=== PATIENT | female | born 1950 | race Caucasian/White ===

== ENCOUNTER → 2019-10-25 12:36 | Outpatient (CLI) | payer MEDICARE, SELFPAY ==
--- NOTE | ~2019-10-25 | MM_ITS ---
EXAMINATION: MM screening [facility] BI w robin HISTORY: Screening mammogram TECHNIQUE: Craniocaudal and mediolateral oblique 3-D tomosynthesis images were obtained and synthetic 2-D images were generated. CAD analysis was submitted and interpreted. COMPARISON: No prior mammogram is available for comparison at this institution. BREAST PARENCHYMAL COMPOSITION: The breasts are almost entirely fatty. FINDINGS: There is an unchanged asymmetry in the middle third of the right breast on the craniocaudal view and stable focal asymmetry in the upper outer quadrant of the left breast. There is no evidence of suspicious mass, calcification, or architectural distortion to suggest malignancy in either breas t. There has been no suspicious interval change. IMPRESSION: 1. No mammographic evidence of malignancy. 2. Recommend routine screening mammography in one year. BI-RADS Category 2: Benign finding(s). Reviewed, dictated and finalized at location A. [employer]
== END ==
PROVIDERS: Visit Provider Nurse Practitioner
DX: Z12.31 Encounter for screening mammogram for malignant neoplasm of breast (principal)
CPT/HCPCS: 77063; 77067

== ENCOUNTER 2019-12-25 08:43 | Emergency (ER) | payer MEDICARE, SELFPAY ==
[2019-12-25 08:55] VITALS: BP 150/92; PULSE 71; RESP 18; TEMP 36.2; O2SAT 98
--- NOTE | 2019-12-25 09:01 | ED.EYEPROB ---
HPI - Eye Problem General Chief complaint: Eye Problems Stated complaint: eye problems History of Present Illness HPI Narrative: This is a 69 year old that comes in complaining of right eye pain that started to hurt 2 days ago and she woke up this morning with drainage. Patient states that her ear was hurting as well. Patient denies any fever, nausea, vomiting or diarrhea . Related Data Home Medications Medication Instructions Recorded Confirmed metoprolol succinate 100 mg 100 mg PO DAILY 08/03/19 11/24/19 tablet,extended release 24 hr Allergies Allergy/AdvReac Type Severity Reaction Status Date / Time Sulfa (Sulfonamide Allergy Unknown Unknown Verified 12/21/18 10:16 Antibiotics) Review of Systems Review of Systems: Narrative: CONSTITUTIONAL: Denies fever, chills, or sweats. EYES: Denies visual changes, reports redness, or discharge. ENT: Denies rhinorrhea, congestion, sore throat, or otalgia. CARDIOVASCULAR:Denies chest pain, palpitations, or edema. RESPIRATORY: Denies cough or dyspnea. GASTROINTESTINAL: Denies abdominal pain, nausea, vomiting, or diarrhea. GENITOURINARY: Denies dysuria or hematuria. SKIN:[Denies rash or itching. MUSCULOSKELETAL:Denies back pain, joint pain, or myalgia. NEUROLOGIC: Denies headache, numbness, or weakness. PSYCHIATRIC:Denies anxiety or depression PMFSH Social History Social History Smoking status: Never smoker Alcohol intake: current Comments At time as signature, I have reviewed and agree with nursing past medical, social, surgical and family history. Please see nursing chart for further information. There is no relevant family history pertinent to the presenting complaint. Exam Narrative: Exam Narrative: GENERAL:Well-appearing, well-nourished, and in no acute distress. HEAD:Normocephalic, atraumatic. EYES: PERRLA and EOMI.pain and red eye with drainage ENT: Nares clear, no rhinorrhea or epistaxis. Mucous membranes moist. right eye drainage and pain right ear has slight auditory edema with drainage. NECK: Supple. CHEST: Clear to auscultation. No respiratory distress. HEART: Regular rate and rhythm. No murmur heard. Normal peripheral pulses. ABDOMEN: Soft, nontender, nondistended, normal active bowel sounds. EXTREMITIES: Normal range of motion. No edema. SKIN: Warm, dry, no rash. NEURO: No focal deficits. Alert and oriented x3. Course Vital Signs Vital signs: Vital Signs Temperature 97.2 F L 12/25/19 08:55 Pulse Rate 71 12/25/19 08:55 Respiratory Rate 18 12/25/19 08:55 Blood Pressure 150/92 H 12/25/19 08:55 Pulse Oximetry 98 12/25/19 08:55 Temperature 97.2 F L 12/25/19 08:55 Pulse Rate 71 12/25/19 08:55 Respiratory Rate 18 12/25/19 08:55 Blood Pressure 150/92 H 12/25/19 08:55 Pulse Oximetry 98 12/25/19 08:55 Discharge Plan Discharge Clinical Impression: Bacterial conjunctivitis, Conjunctivitis, Otitis externa Patient Disposition: Home, Self-Care Condition: Stable Instructions: Antibiotic Form, Corneal Abrasion (ED), Warm Compress or Soak (ED) Additional Instructions: Your blood pressure was elevated in the clinic today, I feel that this is due to your acute illness rather than essential hypertension. please follow-up with your regular doctor for further evaluation and monitor for evaluation of hypertension Please [facility] schedule a followup visit with your personal physician with in the next 1-4 weeks for further evaluation and treatment. Also, ask your personal physician to assist you regarding blood pressure. Even blood pressure exceeding 120/80 may indicate pre-hypertension. If your symptoms persist, change or worsen significantly before you can contact your personal physician then please, without delay, go to the emergency department for further evaluation. Prescriptions: New ofloxacin 0.3 % drops See Rx Instructions .ROUTE .COMPLEX Qty: 10 RF: 0 Ciprodex 0.3-0.1 % drops,suspension
== END 2019-12-25 09:13 | disposition home or self-care (01) ==
PROVIDERS: Emergency Provider Nurse Practitioner Family; PCP Family Medicine
DX: H10.89 Other conjunctivitis (principal); H60.91 Unspecified otitis externa, right ear
CPT/HCPCS: 99213; G0463

== ENCOUNTER → 2021-03-27 11:00 | Outpatient (CLI) | payer MEDICARE, SELFPAY ==
--- NOTE | ~2021-03-27 | MM_ITS ---
EXAMINATION: MM screening [facility] BI w robin HISTORY: Screening TECHNIQUE: Craniocaudal and mediolateral oblique 3-D tomosynthesis images were obtained and synthetic 2-D images were generated. CAD analysis was submitted and interpreted. COMPARISON: Comparison to multiple prior studies sequentially, with oldest reviewed study dated 11/2014. BREAST PARENCHYMAL COMPOSITION: There are scattered areas of fibroglandular density. FINDINGS: There is no evidence of suspicious mass, calcification, or architectural distortion to sugg est malignancy in either breast. There has been no suspicious interval change. IMPRESSION: 1. No mammographic evidence of malignancy. 2. Recommend routine screening mammography in one year. BI-RADS Category 1: Negative Reviewed, dictated and finalized at location A.
== END ==
PROVIDERS: PCP Family Medicine; Visit Provider Nurse Practitioner
DX: Z12.31 Encounter for screening mammogram for malignant neoplasm of breast (principal)
CPT/HCPCS: 77063; 77067

== ENCOUNTER 2021-07-05 18:58 | Emergency (ER) | payer MEDICARE, SELFPAY ==
--- NOTE | ~2021-07-05 | XR_ITS ---
XR forearm LT 2V 07/05/2021 19:13 INDICATION: Left arm pain after fall PROCEDURE: 2 views left forearm COMPARISON: No prior studies for comparison. FINDINGS: Fracture, dislocation or subluxation is not identified. There is triscaphe and first [facility] os teoarthritis. The soft tissues appear within normal limits. No foreign bodies are identified. IMPRESSION: 1: NO ACUTE BONE OR JOINT ABNORMALITY IDENTIFIED. Reviewed, dictated and finalized at location A.
--- NOTE | 2021-07-05 19:05 | ED.UPPEXIN ---
HPI - Extremity Injury (Upper) General Chief Complaint: Fall Stated Complaint: left forarm pain Time Seen by Provider: 07/05/21 19:00 Source: patient and RN notes reviewed Mode of arrival: ambulatory Limitations: no limitations History of Present Illness HPI narrative: 70-year-old female presents to the [facility] with complaints of left forearm pain. Patient reports that she was walking into the garage carrying groceries when she tripped and fell into her 's golf cart. Unknown last tetanus. Small cut noted to the forearm. Clean, swollen. Tender to touch along the ulna. Full range of motion of the wrist, elbow, shoulder. Strong fisher mussel. Positive radial pulse. Capillary refill under 2 seconds and sensation intact distal to injury Related Data Allergies Allergy/AdvReac Type Severity Reaction Status Date / Time Sulfa (Sulfonamide Allergy Unknown Unknown Verified 07/05/21 19:58 Antibiotics) Review of Systems Review of Systems: All systems reviewed & are unremarkable except as noted in HPI and below Constitutional: Constitutional: Reports no additional constitutional complaints, Denies chills and Denies fever(s) Eyes: Eyes: Reports no additional eye complaints ENT: Reports system reviewed and no additional complaints, except as documented Cardiovascular: Cardiovascular: Reports no additional cardiovascular complaints Respiratory: Respiratory: Reports no additional respiratory complaints Gastrointestinal: Gastrointestinal: Reports no additional gastrointestinal complaints Musculoskeletal: Musculoskeletal: Reports as per HPI Comments: Left mid forearm pain Integumentary/Breasts: Skin/Breast: Reports as per HPI Neurologic: Reports system reviewed and no additional complaints, except as documented Psychiatric: Psychiatric: Reports no additional psychiatric complaints Allergic/Immunologic: Allergic/Immunologic: Reports no additional allergic/immunologic complaints [facility] Past Medical History Medical History Basal cell carcinoma of scalp (~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 There is no relevant family history pertinent to the patient complaint. Exam Const: General: healthy appearing, no acute distress and alert Nutritional Appearance: well nourished Orientation/consciousness: patient oriented x3 Limitations: no limitations HENMT: Head: normal to inspection Ears: external ears normal Eyes: Pupils: Equal, round and reactive pupils present Neck: Neck: normal visual inspection, no lymphadenopathy and no meningeal signs Chest: Chest palpation & inspection: normal inspection of the chest Resp: Effort & Inspection: normal respiratory effort Auscultation: clear to auscultation bilaterally Cardio: Rate: regular rate Rhythm: regular rhythm : General: Yes no CVA tenderness Back/Spine/Pelvis: Back: no CVA tenderness Skin: General skin exam: normal color Rashes: no rashes Wounds: wounds noted laceration left mid forearm size (1cm) and without odor; no drainage and without any surrounding erythema Neuro: General: patient oriented x3, moves all extremities, no meningeal signs and no focal motor deficits Speech: normal speech Gait exam (Neuro): Normal gait present Extrem: General: normal to inspection, full ROM and capillary refill normal Left upper
[2021-07-05 19:07] VITALS: BP 157/72; PULSE 70; RESP 18; TEMP 36.1; O2SAT 100
[2021-07-05] MEDS: TETANUS,DIPHTHERIA,AC PERTUSSIS ADULT (0.5 ML) BOOSTRIX IM (19:15)
== END 2021-07-05 19:24 | disposition home or self-care (01) ==
PROVIDERS: Emergency Provider Nurse Practitioner; PCP Family Medicine
DX: S50.12XA Contusion of left forearm, initial encounter (principal); S50.812A Abrasion of left forearm, initial encounter; W22.8XXA Striking against or struck by other objects, initial encounter; Z23 Encounter for immunization; M17.11 Unilateral primary osteoarthritis, right knee; Z85.828 Personal history of other malignant neoplasm of skin; Z96.651 Presence of right artificial knee joint
CPT/HCPCS: 73090; 90471; 90715; 99213; G0463

== ENCOUNTER → 2022-04-22 10:06 | Outpatient (CLI) | payer MEDICARE, SELFPAY ==
--- NOTE | ~2022-04-22 | DEXA_ITS ---
Bone Density Report Name: SPENCER ABRAMS Age: 71 Sex: Female Ethnicity: White Date of : 1950 Indication: postmenopausal; screening for osteoporosis; height loss; Referring Provider: MADIE, LG Study: Bone densitometry was performed. Exam Date: April 22, 2022 Accession number: [id number] Bone Density: Region BMD T-score Z-score Classification AP Spine (L1-L4) 1.422 3.4 5.5 Normal Femoral Neck (Left) 0.949 0.9 2.7 Normal Total Hip (Left) 1.072 1.1 2.5 Normal Femoral Neck (Right) 0.963 1.0 2.8 Normal Total Hip (Right) 1.051 0.9 2.4 Normal Total Hip Mean 1.062 1.0 2.5 Normal World Health Organization criteria for BMD impression classify patients as: Normal (T-score at or above -1.0), Osteopenia (T-score between -1.0 and -2.5), or Osteoporosis (T-score at or below -2.5). 10-year Fracture Risk: FRAX not reported because: All T-scores for Spine Total, Hip Total, Femoral Neck at or above -1.0 Previous Exams: Region Exam Age BMD T-score BMD Change BMD Change Date g/cm2 vs Baseline vs Previous AP Spine(L1-L4) 04/22/2022 71 1.422 3.4 0.102* 0.043* 08/29/2017 66 1.379 3.0 0.059* -0.026* 01/17/2009 58 1.405 3.3 0.086* 0.086* 08/02/2004 53 1.319 2.5 Total Hip(Left) 04/22/2022 71 1.072 1.1 -0.127* -0.030* 08/29/2017 66 1.102 1.3 -0.096* -0.091* 01/17/2009 58 1.194 2.1 -0.005 -0.005 08/02/2004 53 1.199 2.1 Total Hip(Right) 04/22/2022 71 1.051 0.9 -0.097* -0.031* 08/29/2017 66 1.082 1.1 -0.066* -0.149* 01/17/2009 58 1.231 2.4 0.083* 0.083* 08/02/2004 53 1.148 1.7 *Denotes significance at 95% confidence level, LSC for AP Spine = 0.022 g/cm2, LSC for Total Hip = 0.027 g/cm2 Clinical Information Provided by Patient: Has used the following medications: Vitamin D, MTV Patient maximum height was 69 Menopause Age: 60 Drinks caffeinated beverages Onset of menses at age 15 Number of children 2 Impression: The patient has normal bone mass. The BMD for the Total Hip(Left) decreased, changing by -0.030 since the last DXA exam. The BMD for the Total Hip(Right) decreased, changing by -0.031 since the last DXA exam. Discussion: LOW RISK OF FRACTURE; BONE DENSITY IS WELL ABOVE THE MINIMUM DESIRABLE LEVEL AND ABOVE AVERAG
--- NOTE | ~2022-04-22 | MM_ITS ---
EXAMINATION: MM screening [facility] w robin HISTORY: Screening mammogram TECHNIQUE: Craniocaudal and mediolateral oblique 3-D tomosynthesis images were obtained and synthetic 2-D images were generated. CAD analysis was submitted and interpreted. COMPARISON: 03/27/2021, , bilateral screening mammogram examinations BREAST PARENCHYMAL COMPOSITION: There are scattered areas of fibroglandular density. FINDINGS: Stable mild fibroglandular asymmetry. Occasional bilateral benign calcifications. There is no evidence of suspicious mass, calcification, or architectural distortion to suggest malignancy in e ither breast. There has been no suspicious interval change. IMPRESSION: 1. No mammographic evidence of malignancy. 2. Recommend routine screening mammography in one year. BI-RADS Category 2: Benign finding(s). Reviewed, dictated and finalized at location A.
== END ==
PROVIDERS: PCP Family Medicine; Visit Provider Nurse Practitioner
DX: Z12.31 Encounter for screening mammogram for malignant neoplasm of breast (principal); Z78.0 Asymptomatic menopausal state
CPT/HCPCS: 77063; 77067; 77080

== ENCOUNTER → 2023-04-27 11:09 | Outpatient (CLI) | payer MEDICARE, SELFPAY ==
--- NOTE | ~2023-04-27 | MM_ITS ---
EXAMINATION: MM screening [facility] w robin HISTORY: Screening mammogram TECHNIQUE: Craniocaudal and mediolateral oblique 3-D tomosynthesis images were obtained and synthetic 2-D images were generated. CAD analysis was submitted and interpreted. COMPARISON: 04/22/2022, 03/27/2021, bilateral screening mammogram examinations BREAST PARENCHYMAL COMPOSITION: There are scattered areas of fibroglandular density. FINDINGS: Stable mild fibroglandular asymmetry. Occasional benign calcifications. There is no evidenc e of suspicious mass, calcification, or architectural distortion to suggest malignancy in either [address]. There has been no suspicious interval change. IMPRESSION: 1. No mammographic evidence of malignancy. 2. Recommend routine screening mammography in one year. BI-RADS Category 2: Benign finding(s). Reviewed, dictated and finalized at location A.
== END ==
PROVIDERS: PCP Family Medicine; Visit Provider Nurse Practitioner
DX: Z12.31 Encounter for screening mammogram for malignant neoplasm of breast (principal)
CPT/HCPCS: 77063; 77067

== ENCOUNTER 2023-07-14 03:23 | Day surgery (SDC) | payer MEDICARE, SELFPAY ==
[2023-07-01 16:13] VITALS: BMI 28.3
--- NOTE | 2023-07-10 11:00 | SUR.PREOP ---
Patient called regarding upcoming procedure. Message left on patient's voicemail regarding preop instructions and appointment times.
[2023-07-14 07:58] VITALS: BP 163/85; PULSE 87; RESP 18; TEMP 36.7; O2SAT 98
[2023-07-14] MEDS: LACTATED RINGERS 1,000 ML 150 ML IV CONT (08:03)
--- NOTE | 2023-07-14 09:03 | PM.HPGS ---
History of Present Illness History of Present Illness Consent: Risks, benefits, and alternatives have been discussed and questions answered. Patient agrees to proceed with procedure. Chief complaint: neoplasm screening Narrative: Amanda Drummond is a 72 year old female Presents for screening colonoscopy. Patient's current weight appetite and bowel movements are normal. Patient denies abdominal pain. She has had no bleeding. Family history noncontributory. Patient's last colonoscopy 10 years ago was unremarkable. Review of Systems Review of Systems: Review of systems noncontributory. [facility] Past Medical History Medical History (Updated 07/14/23 @ 09:04 by Benjamin Belcher MD) Abrasion of forearm, left Acute non-recurrent maxillary sinusitis Basal cell carcinoma of scalp (~08/07/20) left parietal scalp BMI 27.0-27.9,adult BMI 28.0-28.9,adult BMI 29.0-29.9,adult Body mass index (bmi) 30.0-30.9, adult (12/21/18) Breast cancer screening by mammogram normal mammogram 04/27/2023. Chronic anxiety Colon cancer screening (05/19/22) Fecal occult blood immunoassay screening 05/19/2022 was negative. 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 Restrictive cardiomyopathy Cardiology note with hypertrophic cardiomyopathy Seasonal allergic rhinitis Vaccine for [id number]-birrbohev, combined Surgical History Surgical History History of total right knee replacement Social History Social History Smoking status: Never smoker Alcohol intake: current Alcohol use details: 1-2 per year Substance use: never Substance use type: does not use Lack of Transportation: No Lack of Food: Never True Current Housing: I Have Housing Concerned About Future Housing: No Difficulty Paying Gas/Electric Bills: No Difficulty Paying for Meds: No Currently Unemployed: No Education: Master's Degree or Higher Difficulty w/ Childcare or Family Care: No Living arrangements: with family Spiritual care concerns: No Meds Home Medications and Allergies Home Medications Medication Instructions Recorded Confirmed Type metoprolol succinate 100 mg 100 mg PO DAILY #90 tabs 11/20/22 07/01/23 Rx tablet,extended release 24 hr fenofibrate 160 mg tablet 160 mg PO DAILY #90 tabs 05/06/23 07/01/23 Rx Allergies Allergy/AdvReac Type Severity Reaction Status Date / Time Sulfa (Sulfonamide Allergy Unknown Unknown Verified 07/14/23 07:57 Antibiotics) Vital Signs Vital Signs - 24 hr 07/14/23 07:58 Temperature 98.0 F Pulse Rate 87 Respiratory Rate 18 Blood Pressure 163/85 H Pulse Oximetry 98 Oxygen Delivery Room Air Exam Narrative: Physical exam reveals patient to be alert vital signs stable. HEENT exam is unremarkable. Patient is anicteric. Lungs are clear to auscultation and percussion. Heart is without murmur or extra sounds. Abdomen bowel sounds are present soft nontender with no organomegaly. Digital external rectal exam is normal. Assessment and Plan Assessment and plan (1) Encounter for screening colonoscopy: Code(s): Z12.11 - Encounter for screening for malignant neoplasm of colon Status: Acute Assessment and Plan: Patient presents today for screening colonoscopy. She appears to be at average risk for colon polyps. Further recommendations may be given after endoscopy.
--- NOTE | 2023-07-14 09:26 | WPDANESEPPF ---
Anes - Initial Pre Proc Eval Procedure: Operation Date: 07/14/23 09:15 Proposed Procedures p Screening Colonoscopy - Benjamin Belcher MD Date/Time: 07/14/23 09:26 Surgeon: Benjamin Belcher MD Pre Op Diagnosis: neoplasm screening Patient Data Age: 72 Gender: F Height: 1.7 m Weight: 81.1 kg Last Vital Signs Temp 98.0 F 07/14/23 07:58 Pulse 87 07/14/23 07:58 Resp 18 07/14/23 07:58 BP 163/85 H 07/14/23 07:58 Pulse Ox 98 07/14/23 07:58 O2 Del Method Room Air 07/14/23 07:58 Allergies Allergy/AdvReac Type Severity Reaction Status Date / Time Sulfa (Sulfonamide Allergy Unknown Unknown Verified 07/14/23 07:57 Antibiotics) Home Medications Medication Instructions Recorded Confirmed Type metoprolol succinate 100 mg 100 mg PO DAILY #90 tabs 11/20/22 07/01/23 Rx tablet,extended release 24 hr fenofibrate 160 mg tablet 160 mg PO DAILY #90 tabs 05/06/23 07/01/23 Rx Patient hx anesthesia problems: none Family hx anesthesia problems: none Results Review: All pre-operative results and documents have been reviewed as part of the pre-operative evaluation. [facility] Past Medical History Medical History (Updated 07/14/23 @ 09:04 by Benjamin Belcher MD) Abrasion of forearm, left Acute non-recurrent maxillary sinusitis Basal cell carcinoma of scalp (~08/07/20) left parietal scalp BMI 27.0-27.9,adult BMI 28.0-28.9,adult BMI 29.0-29.9,adult Body mass index (bmi) 30.0-30.9, adult (12/21/18) Breast cancer screening by mammogram normal mammogram 04/27/2023. Chronic anxiety Colon cancer screening (05/19/22) Fecal occult blood immunoassay screening 05/19/2022 was negative. Contusion of forearm, left Hypercalcemia Hypertrophic cardiomyopathy followed by curriculum supervisor annually Insomnia Neoplasm of skin Neuralgia (~2021) intermittent right maxillary neuralgia Osteoarthritis of right knee Overweight (BMI 25.0-29.9) Protein in urine urinalysis was completely normal on 11/10/2022. Restrictive cardiomyopathy Cardiology note with hypertrophic cardiomyopathy Seasonal allergic rhinitis Vaccine for [id number]-meykqmcwp, combined Surgical History Surgical History History of total right knee replacement Social History Social History Smoking status: Never smoker Alcohol intake: current Alcohol use details: 1-2 per year Substance use: never Substance use type: does not use Lack of Transportation: No Lack of Food: Never True Current Housing: I Have Housing Concerned About Future Housing: No Difficulty Paying Gas/Electric Bills: No Difficulty Paying for Meds: No Currently Unemployed: No Education: Master's Degree or Higher Difficulty w/ Childcare or Family Care: No Living arrangements: with family Spiritual care concerns: No Anes - Eval Final PreProcedure Day of Procedure 07/14/23 09:26 Patient weight: normal Heart: regular rate and rhythm Lungs: clear to auscultation Airway: Mallampati scale class II Neurological: alert and oriented Last oral intake: >/= 8 hours ASA classification: III Emergent: no Anesthetic plan: proceed Anesthesia type and monitoring: general GIVS and standard monitoring Results Review: All pre-operative results and documents have been reviewed as part of the pre-operative evaluation. Informed Consent: The patient's anesthetic plan and its attendant risks and benefits were discussed with the patient/family/POA. Questions were solicited and answers provided to the satisfaction of the patient/family/POA.
[2023-07-14] MEDS: SIMETHICONE ORAL SUSPENSION 20 MG/0.3 ML 30 ML BOTTLE 0.6 ML IRRIGATION (10:06)
[2023-07-14 10:14] VITALS: BP 136/60; PULSE 69; RESP 22; O2SAT 99
[2023-07-14 10:24] VITALS: BP 112/70; PULSE 60; RESP 22; O2SAT 98
[2023-07-14 10:34] VITALS: BP 146/80; PULSE 68; RESP 20; O2SAT 99
== END 2023-07-14 10:45 | disposition home or self-care (01) ==
PROVIDERS: PCP Family Medicine; Visit Provider Internal Medicine Gastroenterology
PROC: 0DJD8ZZ Inspection of Lower Intestinal Tract, Via Natural or Artificial Opening Endoscopic (ICD-10-PCS; CPT 45378; principal; 2023-07-14 09:15)
DX: Z12.11 Encounter for screening for malignant neoplasm of colon (principal); D12.2 Benign neoplasm of ascending colon; D12.3 Benign neoplasm of transverse colon; D12.5 Benign neoplasm of sigmoid colon; K63.5 Polyp of colon; K64.8 Other hemorrhoids; I42.2 Other hypertrophic cardiomyopathy
CPT/HCPCS: 45385; 88305; J2704; J7120

== ENCOUNTER 2024-04-28 09:54 | Outpatient (CLI) | payer MEDICARE, SELFPAY ==
--- NOTE | ~2024-04-28 | MM_ITS ---
EXAMINATION: MM screening [facility] BI w robin HISTORY: Screening TECHNIQUE: Craniocaudal and mediolateral oblique 3-D tomosynthesis images were obtained and synthetic 2-D images were generated. CAD analysis was submitted and interpreted. COMPARISON: Comparison to multiple prior studies sequentially, with oldest reviewed study dated 08/08. BREAST PARENCHYMAL COMPOSITION: Not dense: There are scattered areas of fibroglandular density. FINDINGS: There is no evidence of suspicious mass, calcification, or architectural distortion to sugg est malignancy in either breast. There has been no suspicious interval change. IMPRESSION: 1. No mammographic evidence of malignancy. 2. Recommend routine screening mammography in one year. BI-RADS Category 1: Negative Reviewed, dictated and finalized at location B.
== END 2024-04-28 09:55 ==
LOC: MICIMG 09:55
PROVIDERS: PCP Family Medicine; Visit Provider Nurse Practitioner
DX: Z12.31 Encounter for screening mammogram for malignant neoplasm of breast (principal)
CPT/HCPCS: 77063; 77067

== ENCOUNTER 2024-11-07 12:35 | Emergency (ER) | payer MEDICARE, SELFPAY ==
[2024-11-07 12:56] VITALS: BP 124/85; PULSE 65; RESP 16; TEMP 36.2; O2SAT 99
--- NOTE | 2024-11-07 12:57 | ED.GENADULT ---
HPI - General Adult General Chief complaint: Eye Problems Stated complaint: right eye issue Time Seen by Provider: 11/07/24 12:57 Source: patient, RN notes reviewed and old records reviewed Mode of arrival: ambulatory Limitations: no limitations History of Present Illness HPI narrative: 74-year-old female presents to the [facility] with concerns for stye to the right upper eyelid. Started 2 days ago. Has cool compresses. No blurry vision or change in vision. No trauma to the eye. No surrounding orbital erythema. Onset (ago): day(s) (2) Related Data Allergies Allergy/AdvReac Type Severity Reaction Status Date / Time Sulfa (Sulfonamide Allergy Unknown Unknown Verified 11/07/24 12:49 Antibiotics) Review of Systems Review of Systems: All systems reviewed & are unremarkable except as noted in HPI and below Constitutional: Constitutional: Reports no additional constitutional complaints Eyes: Eyes: Reports as per HPI ENT: Reports system reviewed and no additional complaints, except as documented Cardiovascular: Cardiovascular: Reports no additional cardiovascular complaints, Denies chest pain and Denies dyspnea Respiratory: Respiratory: Reports no additional respiratory complaints, Denies chest congestion, Denies cough and Denies dyspnea Musculoskeletal: Musculoskeletal: Reports no additional musculoskeletal complaints Integumentary/Breasts: Skin/Breast: Reports system reviewed and no additional complaints, except as docu [facility] Past Medical History Medical History Tick bite of ankle (~11/28/23) At low risk for fall Adenomatous colon polyp (07/14/23) multiple adenomatous polyps on colonoscopy 07/14/2023 sigmoid, ascending, and transverse colon with recheck in 5 years. BMI 27.0-27.9,adult Breast cancer screening by mammogram normal mammogram 04/27/2023. normal on 04/28/2024. Hypertrophic cardiomyopathy followed by online journalist annually Colon cancer screening (05/19/22) Fecal occult blood immunoassay screening 05/19/2022 was negative. Overweight (BMI 25.0-29.9) Neuralgia (~2021) intermittent right maxillary neuralgia BMI 29.0-29.9,adult Acute non-recurrent maxillary sinusitis Vaccine for [id number], combined Abrasion of forearm, left Contusion of forearm, left Protein in urine urinalysis was completely normal on 11/10/2022. Normal urinalysis 11/13/2023. BMI 28.0-28.9,adult Basal cell carcinoma of scalp (~08/07/20) left parietal scalp Neoplasm of skin Osteoarthritis of right knee Seasonal allergic rhinitis Chronic anxiety Body mass index (bmi) 30.0-30.9, adult (12/21/18) Hypercalcemia Insomnia Restrictive cardiomyopathy Cardiology note with hypertrophic cardiomyopathy Surgical History Surgical History History of total right knee replacement Social History Social History Smoking status: Never smoker Alcohol intake: former Substance use: never Substance use type: does not use Lack of Transportation: No Lack of Food: Never True Current Housing: I Have Housing Concerned About Future Housing: No Difficulty Paying Gas/Electric Bills: No Difficulty Paying for Meds: No Currently Unemployed: No Education: Master's Degree or Higher Difficulty w/ Childcare or Family Care: No Living arrangements: with family Spiritual care concerns: No Comments At the time of my signature, I reviewed and agree with the nursing past medical, surgical, social, and family history. There is no relevant family history pertinent to the patient complaint. Exam Const: General: cooperative, healthy appearing, comfortable, no acute distress, well developed, alert and well nourished Nutritional Appearance: well nourished Orientation/consciousness: patient oriented x3 Limitations: no limitations HENMT: Head: normal to inspection Eyes: General: appearance normal, both eyes and all related structures Alignment and Position: alignment normal Eyelids: eyelid abnormality right upper eyelid other (Stye); no crusting or scaling of lid margins Eyes/upper lids images:  1. Stye, no periorbital cellulitic changes noted Neck: Neck: normal visual inspection, full ROM, no lymphadenopathy and no meningeal signs Chest: Chest palpation & inspection: normal inspection of the chest Resp: Effort & Inspection: normal respiratory effort and able to speak in complete sentences Auscultation: clear to auscultation bilaterally, no crackles, no rales, no rhonchi and no wheezes Cardio: Rate: regular rate Skin: General skin exam: normal color and no rashes or lesions noted Neuro: General: patient oriented x3, gait normal, moves all extremities and no meningeal signs Cognition (Neuro): normal cognition Speech: normal speech Gait exam (Neuro): Normal gait present Extrem: General: normal to inspection, full ROM, capillary refill normal and normal gait Psych: Appearance: grossly normal and well kempt Mental Status: mental status grossly normal Speech and movement: Normal speech and movement present and Clear speech present Affect: normal affect Attitude: cooperative Course Course Level of Care: Express Care Visit Vital Signs Vital signs: Vital Signs Temperature 97.1 F L 11/07/24 12:56 Pulse Rate 65 11/07/24 12:56 Respiratory Rate 16 11/07/24 12:56 Blood Pressure 124/85 11/07/24 12:56 Pulse Oximetry 99 11/07/24 12:56 Oxygen Delivery Room Air 11/07/24 12:56 Temperature 97.1 F L 11/07/24 12:56 Pulse Rate 65 11/07/24 12:56 Respiratory Rate 16 11/07/24 12:56 Blood Pressure 124/85 11/07/24 12:56 Pulse Oximetry 99 11/07/24 12:56 Oxygen Delivery Room Air 11/07/24 12:56 Reviewed Medical Decision Making MDM Narrative Medical decision making narrative: Patient sitting comfortably in exam room. Nontoxic, vitals stable. Patient in no acute distress Patient presents for a stye to the right upper eyelid. Patient is appropriate for outpatient treatment with close follow-up. States that she does have an eye doctor. Discharge instructions reviewed with patient, as well as provided in writing per nursing staff. The instructions also include specific and strict return/GO TO THE ER as well as f/u information. All questions have been answered, and the patient deny any further questions with discharge and discharge plan. Some parts of this dictation were generated by voice recognition software and may contain typographical and/or grammatical inaccuracies. Differential Diagnosis Differential Diagnosis: Cellulitis, stye, blepharitis Medical Records Medical records reviewed: Yes I reviewed the external patient's medical records. Vital Signs Vital Signs: Vital Signs Temperature 97.1 F L 11/07/24 12:56 Pulse Rate 65 11/07/24 12:56 Respiratory Rate 16 11/07/24 12:56 Blood Pressure 124/85 11/07/24 12:56 Pulse Oximetry 99 11/07/24 12:56 Oxygen Delivery Room Air 11/07/24 12:56 Temperature 97.1 F L 11/07/24 12:56 Pulse Rate 65 11/07/24 12:56 Respiratory Rate 16 11/07/24 12:56 Blood Pressure 124/85 11/07/24 12:56 Pulse Oximetry 99 11/07/24 12:56 Oxygen Delivery Room Air 11/07/24 12:56 Reviewed Lab Data Lab results reviewed: Yes I reviewed the patient's lab results. Labs: Reviewed Critical Care Time Critical Care Time Critical Care Time: No Discharge Plan Discharge Clinical Impression: Hordeolum externum of right upper eyelid Patient Disposition: Home, Self-Care Condition: Stable Instructions: Antibiotic Form, Didi (ED) Additional Instructions: Apply a warm damp compress to your affected eye. Be sure to use a clean cloth each time to avoid spreading the infection. Gently clean your eyes with wet cotton balls or pads to remove crusty buildup or irritating discharge. Use eye ointment as prescribed Maintain good hygiene and only touch your eyes with freshly washed hands. You should follow-up with an eye doctor within the next 72 hours [facility]: Ari- [phone] [facility] [phone] [facility] [phone] [place]: [facility] [phone] or [phone] [facility] [phone] [facility] [phone] [facility] [phone] [facility]- [phone] Patient Language: Mauritanian Prescriptions: New erythromycin 5 mg/gram (0.5 %) ointment 0.5 inch RIGHT EYE TID Qty: 3.5 0RF No Action fenofibrate 160 mg tablet 160 mg PO DAILY Qty: 90 3RF metoprolol succinate 100 mg tablet extended release 24 hr 100 mg PO DAILY Qty: 90 3RF Follow-up/Referrals: Pedrito Barker MD [Primary Care Provider] - 2 Weeks (express care follow up ) Stand Alone Forms: Work/School Release IP Time of Disposition: 13:13
== END 2024-11-07 13:15 | disposition home or self-care (01) ==
PROVIDERS: Emergency Provider Nurse Practitioner; PCP Family Medicine
DX: H00.011 Hordeolum externum right upper eyelid (principal); M17.11 Unilateral primary osteoarthritis, right knee; I42.2 Other hypertrophic cardiomyopathy; Z85.828 Personal history of other malignant neoplasm of skin
CPT/HCPCS: 99213; G0463

== ENCOUNTER 2025-05-01 11:21 | Outpatient (CLI) | payer MEDICARE, SELFPAY ==
--- NOTE | ~2025-05-01 | MM_ITS ---
EXAMINATION: MM screening [facility] BI w robin HISTORY: Screening TECHNIQUE: Craniocaudal and mediolateral oblique 3-D tomosynthesis images were obtained and synthetic 2-D images were generated. CAD analysis was submitted and interpreted. COMPARISON: Comparison to multiple prior studies sequentially, with oldest reviewed study dated 10/23/2018. BREAST PARENCHYMAL COMPOSITION: There are scattered areas of fibroglandular density. FINDINGS: There is no evidence of suspicious mass, calcification, or architectural distortion to suggest malignancy in either breast. Scattered benign-appearing calcifications are present. IMPRESSION: 1. No mammographic evidence of malignancy. 2. Recommend routine screening mammography in one year. BI-RADS Category 2: Benign finding(s). Reviewed, dictated and finalized at location B.
== END 2025-05-01 11:22 | disposition home or self-care (01) ==
LOC: MICIMG 11:22
PROVIDERS: PCP Family Medicine; Visit Provider Obstetrics & Gynecology Gynecology
DX: Z12.31 Encounter for screening mammogram for malignant neoplasm of breast (principal)
CPT/HCPCS: 77063; 77067